=== PATIENT | male | born 1970 | race Caucasian/White ===

== ENCOUNTER 2021-04-20 16:09 | Emergency (ER) | payer OTHER ==
[~2021-04-20] VITALS: Ht 175.3 cm; Wt 86.0 kg
[2021-04-20 17:05] LABS: BASOPHILS % 0.5 % (0.0-2.0); EOSINOPHILS % 0.8 % (0.0-5.0); HEMATOCRIT. 42.2 % (42.0-52.0); HEMOGLOBIN. 14.3 g/dL (14.0-18.0); LYMPHOCYTES % 23.4 % (20.0-50.0); MEAN CORPUSCULAR HEMOGLOBIN 30.3 pg (28.0-32.0); MEAN CORPUSCULAR VOLUME 89.6 fL (80.0-94.0); MEAN PLATELET VOLUME 6.8 fl (7.4-10.4); MONOCYTES % 8.3 % (2.0-8.0); PLATELET 325 x1000/uL (130-400); RED BLOOD CELL COUNT 4.71 mill/uL (4.7-6.1); RED CELL DISTRIBUTION WIDTH 13.9 % (11.6-14.6)
[2021-04-20 17:11] LABS: CHLORIDE 99 mEq/L (98-107)
[2021-04-20 17:15] LABS: ETHANOL BLOOD < 10 mg/dL
[2021-04-20 20:50] VITALS: BP 128/78
== END 2021-04-20 21:00 | disposition left against medical advice (07) ==
LOC: ER 16:09 → EDBEDREQ 18:35 → EDBEDREQSVC 18:35 → EDBEDREQTM 18:35 → ER 21:00 → CANBEDREQ 04-21 20:44
DX: G45.9 Transient cerebral ischemic attack, unspecified (principal); R47.81 Slurred speech; E11.9 Type 2 diabetes mellitus without complications; I10 Essential (primary) hypertension
CPT/HCPCS: 36415; 71045; 80053; 80320; 84484; 85025; 93005; 99285; G0480